=== PATIENT | female | born 1945 | race Caucasian/White ===

== ENCOUNTER 2019-10-11 15:46 | Inpatient (IN) | payer BC, MEDICARE ==
[~2019-10-11] VITALS: Ht 157.5 cm; Wt 66.1 kg
--- NOTE | 2019-10-11 16:18 | NUR ---
PT WITH SYNCOPAL EVENT WHILE ATTEMPTING TO HAVE A BM. PT THEN FELL AND HIT BACK OF HEAD AND ALSO OBTAINED AVULSED R PINKY FINGER. PT DENIES CP, SOB, DIZZINESS AT THIS TIME. PT HYPOTENSIVE WHEN EMS ARRIVED ON SCENE 70/30. 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 PT TO CONT PULSE OX, CARD MONITOR, BP.
[2019-10-11] MEDS ORDERED: SODIUM CHLORIDE 0.9% 1,000 ML IV ONE (16:19)
[2019-10-11] MEDS: PLEASE ENTER ALLERGIES MC SCH ×2 (16:30→23:06)
[2019-10-11 16:54] LABS: MEAN CORPUSCULAR HEMOGLOBIN 30.5 pg (27.0-34.8); MEAN CORPUSCULAR HGB CONC 33.7 g/dL (32.4-35.8); MEAN CORPUSCULAR VOLUME 90.5 fL (80-100); PLATELET COUNT 307 x10^3/uL (130-400); RED BLOOD COUNT 3.53 x10^6/uL (3.82-5.3); RED CELL DISTRIBUTION WIDTH 14.9 % (9.6-15.2)
[2019-10-11 16:56] LABS: MD YES
[2019-10-11] MEDS ORDERED: SODIUM CHLORIDE 0.9% 1,000ML IVBOLUS ONE (17:00)
[2019-10-11 17:04] LABS: ANION GAP 10 mmol/L (5-15); CHLORIDE 107 mmol/L (98-107); CREATININE 2.18 mg/dL (0.55-1.02)
[2019-10-11 17:08] LABS: TROPONIN I 0.015 ng/mL (0.000-0.045)
[2019-10-11] MEDS ORDERED: LIDOCAINE-MPF 1%, 5ML ONE ×2 (17:20→18:22)
[2019-10-11] MEDS ORDERED: LIDOCAINE-MPF 1%, 2ML ONE (17:21)
[2019-10-11] MEDS ORDERED: LIDOCAINE-MPF 1%, 5ML INFIL ONE (17:30)
[2019-10-11] MEDS ORDERED: SODIUM CHLORIDE FLUSH 10ML SYR IVF ONE (17:30)
--- NOTE | 2019-10-11 17:32 | NUR ---
BP REMAINS STABLE, PT ATTEMPTED TO PROVIDE URINE SAMPLE, UNABLE TO AT THIS TIME. WILL UPDATE ERMD
[2019-10-11 17:51] LABS: <PLATELET ESTIMATE> ADEQUATE; <PLT MORPHOLOGY> NORMAL PLT MORPH; <RBC MORPHOLOGY> NORMAL; BANDS%(MANUAL) 6 % (0-7); EOS#(MANUAL) 0.25 x10^3/uL (0.0-0.4); EOS% (MANUAL) 1 % (1-7); LYMPH#(MANUAL) 0.75 x10^3/uL (1-3.4); LYMPHS% (MANUAL) 3 % (22-44); MONOS% (MANUAL) 4 % (2-9); SEGS% (MANUAL) 86 % (42-75)
--- NOTE | 2019-10-11 18:00 | NUR ---
PT TO IMAGING AT THIS TIME
[2019-10-11] MEDS ORDERED: NEOSPORIN OINT. PKT 1 PACKET ONE (19:12)
[2019-10-11] MEDS ORDERED: POLYETHYLENE GLYCOL 17 GM PACKET PO PRN (19:30)
[2019-10-11] MEDS ORDERED: BISACODYL 10 MG SUPP PR PRN (19:30)
[2019-10-11] MEDS ORDERED: ONDANSETRON ODT 4 MG PO PRN (19:30)
[2019-10-11] MEDS ORDERED: SODIUM CHLORIDE FLUSH 10ML SYR IVF PRN (19:30)
--- NOTE | 2019-10-11 19:35 | NUR ---
PT TAKEN OFF BED VIRK AND CLEANED. PT THEN ASSISTED TO BR. LINEN CHANGE DONE.
[2019-10-11 20:49] VITALS: BP 110/64
[2019-10-11 21:47] LABS: MICROSCOPIC NOT IND
[2019-10-11 21:50] LABS: CULTURE INDICATED? NO
[2019-10-11] MEDS: NS + 20MEQ KCL 1,000 ML IV SCH (23:06)
[2019-10-12 00:44] VITALS: BP 118/67
[2019-10-12 05:48] LABS: MEAN CORPUSCULAR HEMOGLOBIN 30.2 pg (27.0-34.8); MEAN CORPUSCULAR HGB CONC 33.1 g/dL (32.4-35.8); MEAN CORPUSCULAR VOLUME 91.3 fL (80-100); MEAN PLATELET VOLUME 8.3 fL (7.4-10.4); PLATELET COUNT 280 x10^3/uL (130-400); RED BLOOD COUNT 3.77 x10^6/uL (3.82-5.3); RED CELL DISTRIBUTION WIDTH 15.3 % (9.6-15.2)
[2019-10-12 05:56] LABS: ANION GAP 9 mmol/L (5-15); CALCIUM 7.9 mg/dL (8.5-10.1); CHLORIDE 108 mmol/L (98-107)
[2019-10-12 06:21] LABS: BASOPHILS # (AUTO) 0.02 x10^3/uL (0-0.1); BASOPHILS % (AUTO) 0 % (0-1); EOSINOPHILS # (AUTO) 0.12 x10^3/uL (0-0.4); EOSINOPHILS % (AUTO) 1 % (1-7); LYMPHOCYTES # (AUTO) 0.72 x10^3/uL (1-3.4); LYMPHOCYTES % (AUTO) 5 % (22-44); MD SCAN; MONOCYTES # (AUTO) 0.81 x10^3/uL (0.2-0.8); MONOCYTES % (AUTO) 5 % (2-9); NEUTROPHILS # (AUTO) 13.96 x10^3/uL (1.8-6.8); NEUTROPHILS % (AUTO) 89 % (42-75)
[2019-10-12] MEDS: PLEASE ENTER ALLERGIES MC SCH ×2 (07:33→16:14)
[2019-10-12] MEDS: NS + 20MEQ KCL 1,000 ML IV SCH ×2 (07:33→20:16)
[2019-10-12] MEDS: SENNA/DOCUSATE TABLET PO SCH (07:33)
[2019-10-12 09:00] VITALS: BP_SYST 101; BP_SYST 93; BP_SYST 96; BP_DIAS 53; BP_DIAS 56; BP_DIAS 57
[2019-10-12] MEDS ORDERED: POTASSIUM CHLORIDE 40 MEQ in SODIUM CHLORIDE 0.9% 500 ML IV ONE (11:30)
[2019-10-12 15:00] VITALS: BP 101/60
[2019-10-12] MEDS: ACETAMINOPHEN 325 MG TABLET PO PRN (20:16)
[2019-10-12 20:37] VITALS: BP 94/56
[2019-10-13] VITALS (7 sets, daily range): BP systolic 110–177; BP diastolic 66–92
[2019-10-13] MEDS: PLEASE ENTER ALLERGIES MC SCH ×4 (00:30→23:22)
[2019-10-13] MEDS: NS + 20MEQ KCL 1,000 ML IV SCH ×3 (04:16→23:19)
[2019-10-13 06:00] LABS: ANION GAP 8 mmol/L (5-15); CALCIUM 7.6 mg/dL (8.5-10.1); CHLORIDE 113 mmol/L (98-107)
[2019-10-13 06:01] LABS: CREATININE 1.19 mg/dL (0.55-1.02)
[2019-10-13 06:06] LABS: BASOPHILS # (AUTO) 0.02 x10^3/uL (0-0.1); BASOPHILS % (AUTO) 0 % (0-1); EOSINOPHILS # (AUTO) 0.39 x10^3/uL (0-0.4); EOSINOPHILS % (AUTO) 3 % (1-7); LYMPHOCYTES # (AUTO) 1.33 x10^3/uL (1-3.4); LYMPHOCYTES % (AUTO) 10 % (22-44); MD NO; MEAN CORPUSCULAR HEMOGLOBIN 30.4 pg (27.0-34.8); MEAN CORPUSCULAR HGB CONC 33.2 g/dL (32.4-35.8); MEAN CORPUSCULAR VOLUME 91.6 fL (80-100); MEAN PLATELET VOLUME 8.4 fL (7.4-10.4); MONOCYTES # (AUTO) 0.74 x10^3/uL (0.2-0.8); MONOCYTES % (AUTO) 5 % (2-9); NEUTROPHILS # (AUTO) 11.25 x10^3/uL (1.8-6.8); NEUTROPHILS % (AUTO) 82 % (42-75); PLATELET COUNT 262 x10^3/uL (130-400); RED CELL DISTRIBUTION WIDTH 15.7 % (9.6-15.2)
[2019-10-13] MEDS: SENNA/DOCUSATE TABLET PO SCH (07:47)
[2019-10-13] MEDS: ACETAMINOPHEN 325 MG TABLET PO PRN (19:49)
[2019-10-14 02:25] VITALS: BP 163/77
[2019-10-14 05:54] LABS: ANION GAP 9 mmol/L (5-15); CHLORIDE 112 mmol/L (98-107); CREATININE 0.89 mg/dL (0.55-1.02)
[2019-10-14 05:56] LABS: BASOPHILS # (AUTO) 0.01 x10^3/uL (0-0.1); BASOPHILS % (AUTO) 0 % (0-1); EOSINOPHILS # (AUTO) 0.26 x10^3/uL (0-0.4); EOSINOPHILS % (AUTO) 3 % (1-7); LYMPHOCYTES # (AUTO) 1.12 x10^3/uL (1-3.4); LYMPHOCYTES % (AUTO) 11 % (22-44); MD NO; MEAN CORPUSCULAR HEMOGLOBIN 29.8 pg (27.0-34.8); MEAN CORPUSCULAR HGB CONC 32.2 g/dL (32.4-35.8); MEAN CORPUSCULAR VOLUME 92.3 fL (80-100); MEAN PLATELET VOLUME 8.1 fL (7.4-10.4); MONOCYTES # (AUTO) 0.62 x10^3/uL (0.2-0.8); MONOCYTES % (AUTO) 6 % (2-9); NEUTROPHILS # (AUTO) 7.83 x10^3/uL (1.8-6.8); NEUTROPHILS % (AUTO) 80 % (42-75); PLATELET COUNT 266 x10^3/uL (130-400); RED CELL DISTRIBUTION WIDTH 15.4 % (9.6-15.2)
[2019-10-14 07:07] VITALS: BP 149/76
[2019-10-14] MEDS: SENNA/DOCUSATE TABLET PO SCH (07:28)
[2019-10-14] MEDS: NS + 20MEQ KCL 1,000 ML IV SCH (07:28)
[2019-10-14] MEDS: PLEASE ENTER ALLERGIES MC SCH (07:28)
== END 2019-10-14 11:50 | disposition home or self-care (01) | DRG 604 ==
LOC: ED 20:47 → 4WST 20:48
PROVIDERS: ADMIT Hospitalist; ATTEND Hospitalist
PROC: 0HQ0XZZ Repair Scalp Skin, External Approach (ICD-10-PCS; principal; 2019-10-11)
PROC: 0HQMXZZ Repair Right Foot Skin, External Approach (ICD-10-PCS; 2019-10-11)
DX: S01.01XA Laceration without foreign body of scalp, initial encounter (principal); N17.0 Acute kidney failure with tubular necrosis; D64.9 Anemia, unspecified; D72.829 Elevated white blood cell count, unspecified; E11.9 Type 2 diabetes mellitus without complications; E78.5 Hyperlipidemia, unspecified; E86.0 Dehydration; E86.1 Hypovolemia; E87.6 Hypokalemia; I10 Essential (primary) hypertension; K59.00 Constipation, unspecified; Z82.49 Family history of ischemic heart disease and other diseases of the circulatory system; Z90.710 Acquired absence of both cervix and uterus; Z90.49 Acquired absence of other specified parts of digestive tract; Z88.8 Allergy status to other drugs, medicaments and biological substances
CPT/HCPCS: 36415; 70450; 80048; 81003; 82040; 83735; 84484; 85025; 93005; 93306; 93880; 99285; G0378; J3480; J7030; J7040